=== PATIENT | female | born 1985 | race American Indian/Alaskan Native ===

== ENCOUNTER 2017-11-09 03:38 | Observation (INO) | payer OTHER ==
[2017-11-09] MEDS ORDERED: ASPIRIN PO ONE (04:03)
[2017-11-09 04:35] LABS: Basophils % (Auto) 0.6 % (0.0-1.8); Eosinophils # (Auto) 0.1 K/mm3 (0.0-0.4); Eosinophils % (Auto) 0.9 % (0.0-4.3); Hematocrit 39.3 % (30.3-42.9); Lymphocytes # (Auto) 1.8 K/mm3 (1.2-5.4); Mean Corpuscular HGB Conc 33 % (30-34); Mean Corpuscular Hemoglobin 27 pg (28-32); Mean Corpuscular Volume 83 fl (79-97); Monocytes # (Auto) 0.7 K/mm3 (0.0-0.8); Monocytes % (Auto) 11.6 % (0.0-7.3); Platelet Count 315 K/mm3 (140-440); Red Blood Count 4.73 M/mm3 (3.65-5.03); Red Cell Distribution Width 14.4 % (13.2-15.2)
[2017-11-09 04:57] LABS: BUN/Creatinine Ratio 23; Blood Urea Nitrogen 14 mg/dL (7-17); Calcium 9.6 mg/dL (8.4-10.2); Hemolysis Index 0
--- NOTE | 2017-11-09 05:46 | XRay Report ---
FINAL REPORT EXAM: XR CHEST ROUTINE 2V HISTORY: CP TECHNIQUE: PA and lateral chest radiographs PRIORS: None. FINDINGS: No mediastinal shift. Cardiac silhouette is not enlarged. No pneumothorax, effusion, or focal pulmonary opacity. No acute skeletal finding. IMPRESSION: No focal pulmonary opacity.
[2017-11-09 07:25] LABS: Bilirubin,Urine NEG (Negative); Blood,Urine NEG (Negative); Color,Urine Yellow (Yellow); Protein,Urine <15 mg/dL mg/dL (Negative); Urobilinogen,Urine < 2.0 mg/dL (<2.0); WBC,Urine < 1.0 /HPF (0.0-6.0)
[2017-11-09 07:28] LABS: HCG Qualitative,Urine Negative (Negative)
--- NOTE | 2017-11-09 07:48 | Emergency Department Report ---
HPI - General Chief Complaint: Chest Pain Time Seen by Provider: 11/09/17 07:22 - HPI HPI: Room 26 The patient is 31-year-old female presenting with a chief complaint of chest pain. The patient states her symptoms began yesterday at 16:000 she is preparing to take ibuprofen for headache she decided to put some food on her stomach so she ate 2 cereal bars. The patient states 7-8 minutes later she began itching all over so she took Benadryl and then she developed substernal chest pain that lasted 30 minutes which she described as a "hurt." She denies shortness of breath or diaphoresis. The patient states later in the evening at approximately 02:00 her chest pain return and she had one episode of vomiting. The patient states it felt as though her heart rate increase and this prompted her to come to the ED. Patient states she's never had a stress test or cardiac catheterization. Location: Chest, see above Duration: [See above] Quality: "Hurt" Severity: Currently 0/10 Modifying factors: [see above] Context: [see above] Mode of transportation: Unknown ED Past Medical Hx - Past Medical History Previous Medical History?: No - Surgical History Past Surgical History?: Yes Additional Surgical History: Breast reduction- September 1998 - Family History Family history: diabetes, other (hypertension) - Social History Smoking Status: Never Smoker Substance Use Type: None (denies illicit drug use) ED Review of Systems ROS: Stated complaint: CHEST PAIN Other details as noted in HPI Constitutional: denies: diaphoresis Eyes: denies: eye pain ENT: other (hoarseness) Respiratory: denies: shortness of breath Cardiovascular: chest pain, palpitations Gastrointestinal: nausea, vomiting. denies: abdominal pain Genitourinary: denies: dysuria Musculoskeletal: denies: back pain Skin: pruritus Neurological: headache Physical Exam - Physical Exam Vital Signs: Vital Signs 11/09/17 03:46 Temperature 98.6 F Pulse Rate 80 Respiratory 19 Rate Blood Pressure 164/93 O2 Sat by Pulse 97 Oximetry Physical Exam: GENERAL: The patient is well-developed well-nourished female sitting on stretcher not appearing to be in acute distress. [] HEENT: Normocephalic. Atraumatic. Extraocular motions are intact. Patient has moist mucous membranes. NECK: Supple. Trachea midline CHEST/LUNGS: Clear to auscultation. There is no respiratory distress noted. HEART/CARDIOVASCULAR: Regular. There is no tachycardia. There is no gallop rub or murmur. ABDOMEN: Abdomen is soft, nontender. Patient has normal bowel sounds. There is no abdominal distention. SKIN: There is no rash. There is no edema. There is no diaphoresis. NEURO: The patient is awake, alert, and oriented. The patient is cooperative. The patient has normal speech MUSCULOSKELETAL: There is no evidence of acute injury. ED Course Vital Signs 11/09/17 03:46 Temperature 98.6 F Pulse Rate 80 Respiratory 19 Rate Blood Pressure 164/93 O2 Sat by Pulse 97 Oximetry ED Medical Decision Making - Lab Data Result diagrams: 11/09/17 04:09 11/09/17 04:09 Laboratory Tests 11/09/17 11/09/17 11/09/17 04:09 04:09 07:23 WBC 6.3 RBC 4.73 Hgb 13.0 Hct 39.3 MCV 83 MCH 27 L MCHC 33 RDW 14.4 Plt Count 315 Lymph % (Auto) 28.0 Hall % (Auto) 11.6 H Eos % (Auto) 0.9 Baso % (Auto) 0.6 Lymph # 1.8 Hall # 0.7 Eos # 0.1 Baso # 0.0 Seg Neutrophils % 58.9 Seg Neutrophils # 3.7 D-Dimer Sodium 138 Potassium 4.3 Chloride 100.3 Carbon Dioxide 27 Anion Gap 15 BUN 14 Creatinine 0.6 L Estimated GFR > 60 BUN/Creatinine Ratio 23 Glucose 116 H Calcium 9.6 Troponin T < 0.010 < 0.010 HCG, Qual Urine Color Urine Turbidity Urine pH Ur Specific [place] Urine Protein Urine Glucose (UA) Urine Ketones Urine Blood Urine Nitrite Urine Bilirubin Urine Urobilinogen Ur Leukocyte Esterase Urine WBC (Auto) Urine RBC (Auto) U Epithel Cells (Auto) Urine HCG, Qual 11/09/17 11/09/17 11/09/17 07:52 07:52 Unknown WBC RBC Hgb Hct MCV MCH MCHC RDW Plt Count Lymph % (Auto) Hall % (Auto) Eos % (Auto) Baso % (Auto) Lymph # Hall # Eos # Baso # Seg Neutrophils % Seg Neutrophils # D-Dimer 143.33 Sodium Potassium Chloride Carbon Dioxide Anion Gap BUN Creatinine Estimated GFR BUN/Creatinine Ratio Glucose Calcium Troponin T HCG, Qual Negative Urine Color Yellow Urine Turbidity Clear Urine pH 7.0 Ur Specific [place] 1.013 Urine Protein <15 mg/dl Urine Glucose (UA) Neg Urine Ketones Neg Urine Blood Neg Urine Nitrite Neg Urine Bilirubin Neg Urine Urobilinogen < 2.0 Ur Leukocyte Esterase Neg Urine WBC (Auto) < 1.0 Urine RBC (Auto) 2.0 U Epithel Cells (Auto) 3.0 Urine HCG, Qual Negative - EKG Data -: EKG Interpreted by Me EKG shows normal: sinus rhythm Rate: normal - EKG Data When compared to previous EKG there are: previous EKG unavailable Interpretation: normal EKG - Radiology Data Radiology results: report reviewed (chest x-ray), image reviewed (chest x-ray) interpreted by me: Chest x-ray- no focal infiltrates, no pneumothorax - Differential Diagnosis allergic reaction, ACS, PE, pericarditis, GERD Critical care attestation.: If time is entered above; I have spent that time in minutes in the direct care of this critically ill patient, excluding procedure time. ED Disposition Clinical Impression: Chest pain Disposition: 09 OP ADMIT IP TO THIS HOSP Is pt being admited?: Yes Does the pt Need Aspirin: Yes Condition: Fair Instructions: Chest Pain (ED) Referrals: PRIMARY CARE, [Primary Care Provider] - 3-5 Days Time of Disposition: 09:22 (hospitalist paged)
[2017-11-09] MEDS ORDERED: NITRO-BID 2% TP ONE (09:48)
[2017-11-09] MEDS ORDERED: MORPHINE IV PRN (13:41)
[2017-11-09] MEDS ORDERED: TYLENOL PO PRN (13:41)
[2017-11-09] MEDS ORDERED: SODIUM CHLORIDE FLUSH SYRINGE 10 ML IV PRN (13:41)
[2017-11-09] MEDS ORDERED: ZOFRAN IV PRN (13:41)
--- NOTE | 2017-11-09 13:41 | History and Physical Report ---
History of Present Illness History of present illness: The patient is 31-year-old female presenting with a chief complaint of chest pain. The patient states her symptoms began yesterday at 16:000 she is preparing to take ibuprofen for headache she decided to put some food on her stomach so she ate 2 cereal bars. The patient states 7-8 minutes later she began itching all over so she took Benadryl and then she developed substernal chest pain that lasted 30 minutes which she described as a "hurt." She denies shortness of breath or diaphoresis. The patient states later in the evening at approximately 02:00 her chest pain return and she had one episode of vomiting. The patient states it felt as though her heart rate increase and this prompted her to come to the ED. Patient states she's never had a stress test or cardiac catheterization. Location: Chest, see above Duration: [See above] Quality: "Hurt" Severity: Currently 0/10 Modifying factors: [see above] Context: [see above] Mode of transportation: Unknown ED Past Medical Hx - Past Medical History Previous Medical History?: No - Surgical History Past Surgical History?: Yes Additional Surgical History: Breast reduction- September 1998 - Family History Family history: diabetes, other (hypertension) - Social History Smoking Status: Never Smoker Substance Use Type: None (denies illicit drug use) Medications and Allergies Allergies Allergy/AdvReac Type Severity Reaction Status Date / Time shellfish derived Allergy Anaphylaxis Verified 11/09/17 03:54 Exam - Constitutional Vitals: Temp Pulse Resp BP Pulse Ox 98.6 F 80 18 133/88 100 11/09/17 03:46 11/09/17 10:03 11/09/17 10:03 11/09/17 10:03 11/09/17 10:24 Results - Labs CBC & Chem 7: 11/09/17 04:09 11/09/17 04:09 Labs: Laboratory Last Values WBC 6.3 K/mm3 (4.5-11.0) 11/09/17 04:09 RBC 4.73 M/mm3 (3.65-5.03) 11/09/17 04:09 Hgb 13.0 gm/dl (10.1-14.3) 11/09/17 04:09 Hct 39.3 % (30.3-42.9) 11/09/17 04:09 MCV 83 fl (79-97) 11/09/17 04:09 MCH 27 pg (28-32) L 11/09/17 04:09 MCHC 33 % (30-34) 11/09/17 04:09 RDW 14.4 % (13.2-15.2) 11/09/17 04:09 Plt Count 315 K/mm3 (140-440) 11/09/17 04:09 Lymph % (Auto) 28.0 % (13.4-35.0) 11/09/17 04:09 [facility] % (Auto) 11.6 % (0.0-7.3) H 11/09/17 04:09 Eos % (Auto) 0.9 % (0.0-4.3) 11/09/17 04:09 Baso % (Auto) 0.6 % (0.0-1.8) 11/09/17 04:09 Lymph # 1.8 K/mm3 (1.2-5.4) 11/09/17 04:09 [facility] # 0.7 K/mm3 (0.0-0.8) 11/09/17 04:09 Eos # 0.1 K/mm3 (0.0-0.4) 11/09/17 04:09 Baso # 0.0 K/mm3 (0.0-0.1) 11/09/17 04:09 Seg Neutrophils % 58.9 % (40.0-70.0) 11/09/17 04:09 Seg Neutrophils # 3.7 K/mm3 (1.8-7.7) 11/09/17 04:09 D-Dimer 143.33 ng/mlDDU (0-234) 11/09/17 07:52 Sodium 138 mmol/L (137-145) 11/09/17 04:09 Potassium 4.3 mmol/L (3.6-5.0) 11/09/17 04:09 Chloride 100.3 mmol/L (98-107) 11/09/17 04:09 Carbon Dioxide 27 mmol/L (22-30) 11/09/17 04:09 Anion Gap 15 mmol/L 11/09/17 04:09 BUN 14 mg/dL (7-17) 11/09/17 04:09 Creatinine 0.6 mg/dL (0.7-1.2) L 11/09/17 04:09 Estimated GFR > 60 ml/min 11/09/17 04:09 BUN/Creatinine Ratio 23 % 11/09/17 04:09 Glucose 116 mg/dL (65-100) H 11/09/17 04:09 Calcium 9.6 mg/dL (8.4-10.2) 11/09/17 04:09 Troponin T < 0.010 ng/mL (0.00-0.029) 11/09/17 10:04 HCG, Qual Negative (Negative) 11/09/17 07:52 Urine Color Yellow (Yellow) 11/09/17 Unknown Urine Turbidity Clear (Clear) 11/09/17 Unknown Urine pH 7.0 (5.0-7.0) 11/09/17 Unknown Ur Specific [place] 1.013 (1.003-1.030) 11/09/17 Unknown Urine Protein <15 mg/dl mg/dL (Negative) 11/09/17 Unknown Urine Glucose (UA) Neg mg/dL (Negative) 11/09/17 Unknown Urine Ketones Neg mg/dL (Negative) 11/09/17 Unknown Urine Blood Neg (Negative) 11/09/17 Unknown Urine Nitrite Neg (Negative) 11/09/17 Unknown Urine Bilirubin Neg (Negative) 11/09/17 Unknown Urine Urobilinogen < 2.0 mg/dL (<2.0) 11/09/17 Unknown Ur Leukocyte Esterase Neg (Negative) 11/09/17 Unknown Urine WBC (Auto) < 1.0 /HPF (0.0-6.0) 11/09/17 Unknown Urine RBC (Auto) 2.0 /HPF (0.0-6.0) 11/09/17 Unknown U Epithel Cells (Auto) 3.0 /HPF (0-13.0) 11/09/17 Unknown Urine HCG, Qual Negative (Negative) 11/09/17 Unknown Assessment and Plan Assessment and plan: Chest pain
[2017-11-09] MEDS ORDERED: BABY ASPIRIN PO STA (13:43)
[2017-11-09] MEDS ORDERED: NITROSTAT SL PRN (13:43)
[2017-11-09] MEDS ORDERED: SODIUM CHLORIDE FLUSH SYRINGE 10 ML IV SCH (22:00)
--- NOTE | 2017-11-10 09:53 | Discharge Summary ---
Providers - Providers Date of Admission: 11/09/17 13:41 Attending physician: VIVIAN JOYCE MD 11/09/17 Consult to Cardiac Rehabilitation [CONS] Routine Reason For Exam: Phase I Primary care physician: SUZY JOYCE MD Hospitalization Condition: Fair Core Measure Documentation - Palliative Care Palliative Care/ Comfort Measures: Not Applicable Exam - Constitutional Vitals: Temp Pulse Resp BP Pulse Ox 99.2 F 88 18 131/89 98 11/10/17 05:54 11/10/17 05:54 11/10/17 05:54 11/10/17 05:54 11/10/17 05:54 Plan Follow up with: PRIMARY MD MARIA DEL CARMEN [Primary Care Provider] - 3-5 Days Prescriptions: Ranitidine HCl [Zantac 300 MG TAB] 300 mg PO QPM #30 tablet
[2017-11-10 12:31] VITALS: BP 121/90
== END 2017-11-10 15:41 | disposition home or self-care (01) ==
LOC: ED 03:38 → 3A 13:41
PROVIDERS: ADMIT Internal Medicine; ATTEND Internal Medicine
DX: R07.89 Other chest pain (principal)
CPT/HCPCS: 36415; 71046; 80048; 81001; 81025; 84484; 84703; 85025; 85379; 93005; 93010; 93017; 96374; 99285; G0378; J2930